=== PATIENT | female | born 1975 | race Caucasian/White ===

== ENCOUNTER → 2016-05-26 | Outpatient (CLI) | payer BC | END | disposition short-term general hospital (02) | LOC: LAB 13:12 | DX: I82.401 Acute embolism and thrombosis of unspecified deep veins of right lower extremity (principal) ==

== ENCOUNTER → 2016-08-18 | Outpatient (CLI) | payer BC | END | disposition short-term general hospital (02) | LOC: CLONCO 10:21 | DX: I82.401 Acute embolism and thrombosis of unspecified deep veins of right lower extremity (principal); E66.9 Obesity, unspecified ==